=== PATIENT | male | born 1985 | race Caucasian/White ===

== ENCOUNTER 2021-01-14 21:03 | Emergency (ER) | payer OTHER ==
[~2021-01-14] VITALS: Ht 172 cm; Wt 78.0 kg
[2021-01-14] MEDS ORDERED: DOXY100T2 PO (21:27)
--- NOTE | 2021-01-14 21:28 | ED Integumentary General ---
General Chief Complaint: Skin/Wound Problems Stated Complaint: BUMP ON BACK OF HEAD/NECK SWELLING Nursing Triage Note: patient verbalized no injury, felt "bump" on back of head, states this morning swollen, pain and chills Source: patient Exam Limitations: no limitations History of Present Illness Date Seen by Provider: Jan 14, 2021 Time Seen by Provider: 21:24 Initial Comments To ER with reports of a bump to the left parietal scalp that he noticed yesterday. Today he has another bump that is inferior to that that is also tender. Has had chills. Timing/Duration: just prior to arrival Severity: moderate Location: scalp Possible Cause: no cause identified Associated Symptoms: denies symptoms Allergies and Home Medications Allergies Coded Allergies: No Known Drug Allergies (Unverified , 08/12/13) Patient Home Medication List Home Medication List Reviewed: Yes Review of Systems Review of Systems Constitutional: see HPI, chills, malaise EENTM: see HPI Respiratory: no symptoms reported Cardiovascular: no symptoms reported Genitourinary: no symptoms reported Musculoskeletal: no symptoms reported Skin: see HPI Psychiatric/Neurological: No Symptoms Reported Endocrine: No Symptoms Reported Hematologic/Lymphatic: No Symptoms Reported Past Ljhfwjc-Xzzqaj-Pvqslc Hx Patient Social History Alcohol Use: Denies Use Smoking Status: Current Everyday Smoker Type Used: Cigarettes 2nd Hand Smoke Exposure: Yes Recent Infectious Disease Expo: No Immunizations Up To Date Tetanus Booster (TDap): More than 5yrs Past Medical History Surgeries: No Respiratory: No Cardiac: No Neurological: No Reproductive Disorders: No Sexually Transmitted Disease: No HIV/AIDS: No Gastrointestinal: No Musculoskeletal: No Endocrine: No Cancer: No Psychosocial: No Integumentary: No Blood Disorders: No Adverse Reaction/Blood Tranf: No Physical Exam Vital Signs Vital Signs - First Documented 01/14/21 21:08 Temp 37.0 Pulse 68 Resp 18 B/P (MAP) 113/80 (91) Pulse Ox 97 O2 Delivery Room Air Capillary Refill : Less Than 3 Seconds General Appearance: WD/WN, no apparent distress HEENT: PERRL/EOMI, normal ENT inspection, other (There is a quarter sized area of induration and very slight erythema to the left parietal scalp without fluctuance or punctum. Inferior to this is a left occipital lymph node that is tender and mobile.) Neck: non-tender, full range of motion Respiratory: no respiratory distress, no accessory muscle use Gastrointestinal: normal bowel sounds, non tender, soft Neurologic/Psychiatric: alert, normal mood/affect, oriented x 3 Skin: normal color, warm/dry Skin Problem Location: scalp, neck Skin Problem Character: erythema Progress/Results/Core Measures Results/Orders Vital Signs/I&O 01/14/21 21:08 Temp 37.0 Pulse 68 Resp 18 B/P (MAP) 113/80 (91) Pulse Ox 97 O2 Delivery Room Air Blood Pressure Mean: 91 Departure Impression Primary Impression: Cellulitis of scalp Disposition: HOME, SELF-CARE Condition: Stable Departure-Patient Inst. Decision time for Depature: 21:26 Referrals: LUKE ELLIS MD (PCP/Family) Primary Care Physician Patient Instructions: Cellulitis (Skin Infection), Adult ED Add. Discharge Instructions: 1. Tylenol and ibuprofen for pain control. Antibiotic as directed. Follow-up with Dr. Ellis later this week for recheck. All discharge instructions reviewed with patient and/or family. Voiced understanding. Scripts Doxycycline Hyclate (Doxycycline Hyclate) 100 Mg Tablet 100 MG PO BID, #14 TAB 0 Refills Prov: JASIEL MARX APRN 01/14/21 JASIEL MARX APRN Jan 14, 2021 21:28
[2021-01-14] MEDS ORDERED: DOXYCYCLINE 100 MG (VIBRAMYCIN) TABLET PO SCH (21:30)
[2021-01-14 21:43] VITALS: BP 113/80
== END 2021-01-14 21:45 | disposition home or self-care (01) ==
LOC: EDUNIT# 21:03 → ER 21:05
DX: L03.811 Cellulitis of head [any part, except face] (principal); F17.210 Nicotine dependence, cigarettes, uncomplicated
CPT/HCPCS: 99283

== ENCOUNTER → 2022-07-22 | Outpatient (CLI) | payer BC, OTHER ==
[~2022-07-22] MED LIST: DOXY100T2 PO
--- NOTE | 2022-07-22 16:57 | Diagnostic Imaging Report ---
INDICATION: Pain, lump on knee. COMPARISON: None available. TECHNIQUE: Three radiographs of the right knee dated 07/22/2022. FINDINGS: A BB marker is placed overlying the region of clinical concern. No acute fracture or dislocation. No destructive osseous process. Joint spaces are well-maintained. No significant osteophytosis. No knee joint effusion. Focal soft tissue swelling is noted within the infrapatellar soft tissues corresponding to the region of clinical concern as indicated by the BB marker. No suspicious radiopaque foreign body. IMPRESSION: Focal soft tissue prominence within the infrapatellar soft tissues without acute osseous abnormality. This could relate to underlying bursitis versus hematoma versus tendinitis. Should symptoms persist, consideration for an MRI could be made. Dictated by: Dictated on workstation # [id number]
== END ==
LOC: RAD 11:18
PROVIDERS: ATTEND Family Medicine
DX: M25.861 Other specified joint disorders, right knee (principal)
CPT/HCPCS: 73562